=== PATIENT | male | born 1975 | race Hispanic/Latino ===

== ENCOUNTER 2019-04-28 10:02 | Emergency (ER) | payer BC ==
[~2019-04-28] VITALS: Ht 172.7 cm; Wt 113.4 kg
[2019-04-28 10:19] VITALS: BP 145/66
[2019-04-28 10:20] VITALS: BP 145/66
--- NOTE | 2019-04-28 10:21 | NUR ---
ARRIVAL PATIENT ARRIVED TO [facility] AMBULATORY, C/O OF DIZZINESS AND RIGHT HAND NUMBNESS THAT STARTED ON HIS DRIVE OVER TO [place] FROM [place], DECIDED WHEN IT DIDNT CLEAR UP TO COME TO THE ED FOR FURTHER EVAL BY EDP. NO DISTRESS NOTED, DENIES ANY TYPE OF PAIN JUST DIZZINESS. DOCTOR JAMES NOTIFIED OF PATIENTS ARRIVAL.
[2019-04-28 10:57] LABS: BASOPHIL % 0.2 % (0.0-0.2); EOSINOPHIL # 0.2 10^3/uL (0.0-0.2); EOSINOPHIL % 2.2 % (0.0-5.0); HEMOGLOBIN 16.4 g/dL (13.9-16.3); LYMPHOCYTES # 2.4 10^3/uL (1.0-4.8); LYMPHOCYTES % 27.6 % (24.0-44.0); MEAN CELL HGB 29.5 pg (26-34); MEAN CELL HGB CONCENTRATION 34.6 g/dL (33-37); MEAN CORP VOLUME 85.4 fL (78-100); MEAN PLATELET VOLUME 9.6 fL (7.8-11.0); MONOCYTES # 0.8 10^3/uL (0.3-0.8); MONOCYTES % 9.4 % (5.0-12.0); NEUTROPHIL # 5.3 10^3/uL (1.8-7.7); NEUTROPHILS % 59.9 % (41.0-85.0); RED CELL DISTRIBUTION WIDTH 12.6 % (11.5-14.5); WHITE BLOOD CELL 8.8 10^3/uL (4.5-11.0)
--- NOTE | 2019-04-28 10:59 | ER.PDOC ---
General Chief Complaint: Dizziness Stated Complaint: DIZZINESS Time seen by MD: 10:31 Source: patient Exam Limitations: no limitations History of Present Illness Initial Comments Pt reports feeling dizzy for the last few days, got worse this morning. Describes it as more light-headed, worse when he closes his eyes. Is now constant. Denies chest pain, trouble breathing, LEAL, weakness, has some tingling in hands. Occurred: this morning Associated Symptoms: light headness Prior symptoms/Treatment: No Similar symptoms previous, No Recenly Seen Allergies: Coded Allergies: Anesthetics - Amide Type (Verified Allergy, Unknown, 04/28/19) Home Meds Unable to Obtain Active Prescriptions or Reported Meds Past Medical History Medical History: GERD Surgical History: cholecystectomy Family History Significant Family History: no pertinent family hx Social History Smoking: non-smoker Alcohol Use: none Drug Use: marijuana Review of Systems Constitutional: no symptoms reported Eyes: no symptoms reported Ears: no symptoms reported Mouth: no symptoms reported Respiratory: no symptoms reported Cardiovascular: no symptoms reported Gastrointestinal: no symptoms reported Genitourinary: no symptoms reported Musculoskeletal: no symptoms reported Skin: no symptoms reported Psychiatric/Neurological: see HPI All Other Systems: Reviewed and Negative Physical Exam General Appearance: alert EENT: nml eye inspection, PERRL, no nystagmus, nml ENT inspection, pharynx nml, TM's nml Neck: supple Respiratory: no resp distress, breath sounds nml CVS: reg rate & rhythm, heart sounds.nml Abdomen: non-tender, no organomegaly, no distention Skin: color nml, no rash, warm/dry Extremities: non-tender, nml ROM, no pedal edema Neuro/Psych: nml orientation, nml speech/cognition, nml mood/affect Cranial Nerves: nml as tested, no evidence of acute CVA Cerebellar: nml as tested Comments Pt with ?decreased armature rewinder on R hand, but has inconsistent effort during exam. Results/Orders Results/Orders Orders - LINDA RAMIREZ DO Cbc With Auto Diff (04/28/19 10:46) Comprehensive Metabolic Panel (04/28/19 10:46) Troponin I (04/28/19 10:46) Probnp B-Type Ornament Setter (04/28/19 10:46) Ct Head Wo Contrast (04/28/19 10:46) Urinalysis (04/28/19 10:46) Drug Screen Medical(Ml) (04/28/19 10:46) Vital Signs Date Time Temp Pulse Resp B/P (MAP) Pulse Ox O2 Delivery O2 Flow Rate FiO2 04/28/19 11:51 98.6 72 16 140/77 (98) 99 Room Air 04/28/19 10:20 98.6 63 16 145/66 (92) 99 Room Air 04/28/19 10:19 98.6 63 16 04/28/19 10:17 98.6 63 16 99 Room Air Laboratory Tests Test 04/28/19 10:52 White Blood Count 8.8 10^3/uL (4.5-11.0) Red Blood Count 5.55 10^6/uL (4.50-5.90) Hemoglobin 16.4 g/dL (13.9-16.3) H Hematocrit 47.4 % (37.0-53.0) Mean Corpuscular Volume 85.4 fL (78-100) Mean Corpuscular Hemoglobin 29.5 pg (26-34) Mean Corpuscular Hemoglobin Concent 34.6 g/dL (33-37) Red Cell Distribution Width 12.6 % (11.5-14.5) Platelet Count 269 10^3/uL (150-400) Mean Platelet Volume 9.6 fL (7.8-11.0) Neutrophils (%) (Auto) 59.9 % (41.0-85.0) Lymphocytes (%) (Auto) 27.6 % (24.0-44.0) Monocytes (%) (Auto) 9.4 % (5.0-12.0) Neutrophils # (Auto) 5.3 10^3/uL (1.8-7.7) Lymphocytes # (Auto) 2.4 10^3/uL (1.0-4.8) Monocytes # (Auto) 0.8 10^3/uL (0.3-0.8) Absolute Immature Granulocyte (auto 0.06 10^3 u/L (0-2) Immature Granulocytes % 0.70 % (0.00-0.50) H Eosinophils % 2.2 % (0.0-5.0) Basophils % 0.2 % (0.0-0.2) Basophils # 0.0 10^3/uL (0.0-0.1) Eosinophil Count 0.2 10^3/uL (0.0-0.2) Urine Collection Type VOID Urine Color YELLOW (YELLOW) Urine Appearance CLEAR (CLEAR) Urine Bilirubin NEGATIVE MG/DL (NEGATIVE) Urine Ketones NEGATIVE (NEGATIVE) Urine Specific [place] 1.015 (1.005-1.035) Urine pH 8 (5.0-6.0) Urine Protein NEGATIVE (NEGATIVE) Urine Urobilinogen NORMAL (NEGATIVE) Urine Nitrate NEGATIVE (NEGATAIVE) Urine Leukocyte Esterase NEGATIVE (NEGATIVE) Urine Blood NEGATIVE (NEGATIVE) Urine Glucose NORMAL (NEGATIVE) Sodium Level 143 mmol/L (132-145) Potassium Level 3.7 mmol/L (3.6-5.2) Chloride Level 106.0 mmol/L (96-109) Carbon Dioxide Level 28.3 mmol/L (20.0-32) Anion Gap 12.4 Blood Urea Nitrogen 17 mg/dL (7-18) Creatinine 1.18 mg/dL (0.59-1.40) Estimated GFR () 81.9 (>/=60) BUN/Creatinine Ratio 14.0 Glucose Level 141 mg/dL (70-110) H Calcium Level 9.2 mg/dL (8.4-10.5) Total Bilirubin 0.5 mg/dL (0.2-1.0) Aspartate Amino Transferase (AST) 26 U/L (0-35) Alanine Aminotransferase (ALT) 69 U/L (12-78) Alkaline Phosphatase 126 U/L (50-136) Troponin I < 0.02 ng/mL (0.00-0.05) Pro-B-Type Natriuretic Peptide 8 pg/mL (0-125) Total Protein 7.7 g/dL (6.4-8.2) Albumin 4.1 g/dL (3.4-5.0) Globulin 3.6 Urine Opiates, Qualitative NEGATIVE ng/mL (CUT-OFF:300) Urine Methadone, Qualitative NEGATIVE ng/mL (CUT-OFF:300) Urine Amphetamine Qualitative NEGATIVE ng/mL (CUTOFF:1000) Urine Barbiturates, Qualitative NEGATIVE ng/mL (CUT-OFF:200) Urine Phencyclidine Screen NEGATIVE ng/mL (CUT-OFF:25) Urine MDMA (Ecstasy), Qualitative NEGATIVE ng/mL (CUT-OFF:300) Urine Benzodiazepines Screen NEGATIVE ng/mL (CUT-OFF:200) Urine Cocaine Qualitative NEGATIVE ng/mL (CUT-OFF:300) Ur Tetrahydrocannabinol (THC) Scrn NEGATIVE ng/mL (CUT-OFF:50) Progress Progress Pt without any significant lab abnormality or abnormal CT finding. On re-exam, no weakness noted. Will have him f/u with PMD. Glucose 141, but not fasting. Course Vitals & review Data Vital Sign - Last 24 Hours 04/28/19 04/28/19 04/28/19 04/28/19 10:17 10:19 10:20 11:51 Temp 98.6 98.6 98.6 98.6 Pulse 63 63 63 72 Resp 16 16 16 16 B/P (MAP) 145/66 (92) 140/77 (98) Pulse Ox 99 99 99 O2 Delivery Room Air Room Air Room Air Laboratory Tests Test 04/28/19 10:52 White Blood Count 8.8 10^3/uL Red Blood Count 5.55 10^6/uL Hemoglobin 16.4 g/dL Hematocrit 47.4 % Mean Corpuscular Volume 85.4 fL Mean Corpuscular Hemoglobin 29.5 pg Mean Corpuscular Hemoglobin Concent 34.6 g/dL Red Cell Distribution Width 12.6 % Platelet Count 269 10^3/uL Mean Platelet Volume 9.6 fL Neutrophils (%) (Auto) 59.9 % Lymphocytes (%) (Auto) 27.6 % Monocytes (%) (Auto) 9.4 % Neutrophils # (Auto) 5.3 10^3/uL Lymphocytes # (Auto) 2.4 10^3/uL Monocytes # (Auto) 0.8 10^3/uL Absolute Immature Granulocyte (auto 0.06 10^3 u/L Immature Granulocytes % 0.70 % Eosinophils % 2.2 % Basophils % 0.2 % Basophils # 0.0 10^3/uL Eosinophil Count 0.2 10^3/uL Urine Collection Type VOID Urine Color YELLOW Urine Appearance CLEAR Urine Bilirubin NEGATIVE MG/DL Urine Ketones NEGATIVE Urine Specific [place] 1.015 Urine pH 8 Urine Protein NEGATIVE Urine Urobilinogen NORMAL Urine Nitrate NEGATIVE Urine Leukocyte Esterase NEGATIVE Urine Blood NEGATIVE Urine Glucose NORMAL Sodium Level 143 mmol/L Potassium Level 3.7 mmol/L Chloride Level 106.0 mmol/L Carbon Dioxide Level 28.3 mmol/L Anion Gap 12.4 Blood Urea Nitrogen 17 mg/dL Creatinine 1.18 mg/dL Estimated GFR () 81.9 BUN/Creatinine Ratio 14.0 Glucose Level 141 mg/dL Calcium Level 9.2 mg/dL Total Bilirubin 0.5 mg/dL Aspartate Amino Transf (AST/SGOT) 26 U/L Alanine Aminotransferase (ALT/SGPT) 69 U/L Alkaline Phosphatase 126 U/L Troponin I < 0.02 ng/mL Pro-B-Type Natriuretic Peptide 8 pg/mL Total Protein 7.7 g/dL Albumin 4.1 g/dL Globulin 3.6 Urine Opiates, Qualitative NEGATIVE ng/mL Urine Methadone, Qualitative NEGATIVE ng/mL Urine Amphetamine Qualitative NEGATIVE ng/mL Urine Barbiturates, Qualitative NEGATIVE ng/mL Urine Phencyclidine Screen NEGATIVE ng/mL Urine MDMA (Ecstasy), Qualitative NEGATIVE ng/mL Urine Benzodiazepines Screen NEGATIVE ng/mL Urine Cocaine Qualitative NEGATIVE ng/mL Ur Tetrahydrocannabinol (THC) Scrn NEGATIVE ng/mL Sepsis Infection Criteria Pres: None O2 Sat by Pulse Oximetry: 99 Departure Time of Disposition: 11:51 Disposition: 01 HOME, SELF-CARE Impression: Primary Impression: Dizziness Condition: Stable Referrals: LAISHA LOERA MD (PCP) PRIMARY CARE PROVIDER Scripts Unable to Obtain Active Prescriptions or Reported Meds Duration or Time Spent with Pa: 30 LINDA RAMIREZ DO Apr 28, 2019 10:59
--- NOTE | 2019-04-28 10:59 | NUR ---
CAT SCAN PATIENT TO AND FROM CAT SCAN WITH [facility] FROM RADIOLOGY.
[2019-04-28 11:01] LABS: BILIRUBIN,URINE NEGATIVE (NEGATIVE); UROBILINOGEN,URINE NORMAL (NEGATIVE)
[2019-04-28 11:03] LABS: APPEARANCE,URINE CLEAR (CLEAR); UA COLOR YELLOW (YELLOW)
--- NOTE | 2019-04-28 11:12 | DIREP ---
PROCEDURE:CT HEAD OR BRAIN W/O CONTRAST COMPARISON:None. INDICATIONS:dizziness TECHNIQUE:CT images were created without intravenous contrast. FINDINGS: VENTRICLES:The ventricles are normal in size and configuration. CEREBRUM:Normal cerebral morphology with appropriate swanson white matter differentiation. CEREBELLUM:Negative. BRAINSTEM:Negative. BASAL CISTERNS:Negative. HEMORRHAGE:No MASS LESION:No ACUTE INFARCT:No SKULL:Normal. SINUSES:Normal. OTHER:None CONCLUSION:Normal examination. Dictated by: Nic Plaza M.D. on 04/28/2019 at 11:10 AM
[2019-04-28 11:27] LABS: ALANINE AMINOTRANSFERASE(ML) 69 U/L (12-78); ALKALINE PHOSPHATASE 126 U/L (50-136); ASPARTATE AMINO TRANSFERASE 26 U/L (0-35); CALCIUM 9.2 mg/dL (8.4-10.5); CARBON DIOXIDE 28.3 mmol/L (20.0-32); GLUCOSE 141 mg/dL (70-110)
[2019-04-28 11:51] VITALS: BP 140/77
== END 2019-04-28 12:00 | disposition home or self-care (01) ==
LOC: ER 10:02
DX: R42 Dizziness and giddiness (principal); R51 Headache; R20.2 Paresthesia of skin; F12.10 Cannabis abuse, uncomplicated; Z88.4 Allergy status to anesthetic agent; Z90.49 Acquired absence of other specified parts of digestive tract
CPT/HCPCS: 36415; 70450; 80053; 80307; 81002; 83880; 84484; 85025; 99285